=== PATIENT | female | born 1980 | race Caucasian/White ===

== ENCOUNTER 2017-10-04 19:53 | Emergency (ER) | payer OTHER ==
[~2017-10-04] VITALS: Ht 157.5 cm; Wt 102.5 kg
[2017-10-04 20:00] VITALS: Ht 157.5 cm; Wt 102.5 kg
[2017-10-04 21:01] LABS: BASOPHIL % 0.7 % (0-2); PLATELET COUNT 297 x10^3mcL (130-400); RED CELL DISTRIBUTION WIDTH 13.4 % (11.5-14.5)
[2017-10-04 21:09] LABS: CARBON DIOXIDE 27.4 mmol/L (21-32); CREATININE SERUM 1.4 mg/dL (0.6-1.0); POTASSIUM SERUM 3.5 mmol/L (3.5-5.1)
[2017-10-04 21:14] LABS: ALBUMIN 4.1 g/dL (3.4-5.0); BILIRUBIN TOTAL 0.22 mg/dL (0.20-1.00); TOTAL PROTEIN, SERUM 7.7 g/dL (6.4-8.2)
[2017-10-04 23:13] LABS: microscopic required? YES; urine erythrocyte 1+ (NEGATIVE)
[2017-10-04 23:55] VITALS: BP 127/100
== END 2017-10-04 23:55 | disposition home or self-care (01) ==
LOC: ED 19:53
PROVIDERS: Emergency Medicine
DX: R10.11 Right upper quadrant pain (principal); N18.9 Chronic kidney disease, unspecified; F17.210 Nicotine dependence, cigarettes, uncomplicated; R10.13 Epigastric pain
CPT/HCPCS: C9113; J1885; J2270; J2405; Q0092

== ENCOUNTER 2018-09-12 22:04 | Emergency (ER) | payer OTHER ==
[~2018-09-12] VITALS: Ht 157.5 cm; Wt 101.6 kg
[2018-09-12 22:31] VITALS: Ht 157.5 cm; Wt 101.6 kg
[2018-09-13 00:42] VITALS: BP 154/71
== END 2018-09-13 00:42 | disposition home or self-care (01) ==
LOC: ED 22:04
DX: G89.29 Other chronic pain (principal); M54.5 Low back pain; N18.9 Chronic kidney disease, unspecified; Z87.442 Personal history of urinary calculi; Z98.51 Tubal ligation status; Z98.890 Other specified postprocedural states
CPT/HCPCS: J1885